=== PATIENT | female | born 1990 ===

== ENCOUNTER 2020-01-29 16:45 | Inpatient (IN) | payer BC ==
[2020-01-29 17:30] VITALS: BMI 25.7
[2020-01-29] MEDS ORDERED: BUTORPHANOL TARTRATE 1 MG/ML VIAL IVPB PRN (18:17)
[2020-01-29] MEDS ORDERED: DINOPROSTONE 10 MG VAGINAL SUPPOSITORY VG ONE (18:17)
[2020-01-29] MEDS ORDERED: PROMETHAZINE HCL 25 MG/1 ML VIAL IVPB PRN (18:17)
[2020-01-29] MEDS ORDERED: ZOLPIDEM TARTRATE 5 MG TABLET PO PRN (18:19)
--- NOTE | 2020-01-29 18:27 | HP ---
Past Medical History - Primary Care Physician PCP:: Ielana NR - [address] [place] - Admission Chief Complaint: Induction of labor History Source: Patient, Medical Record Limitations to Obtaining History: No Limitations - Past Medical History ...: 1 ...Para: 0 ...EDC by Sono: 02/02/20 Additional OB History: IVF Endocrine: Yes: Hypothyroidism - Past Surgical History Past Surgical History: Yes: Cystectomy Hx Myomectomy: No Hx Transabdominal Cerclage: No - Smoking History Smoking history: Never smoked Have you smoked in the past 12 months: No - Alcohol/Substance Use Hx Alcohol Use: No - Social History History of Recent Travel: No Home Medications - Allergies Allergies/Adverse Reactions: Allergies Allergy/AdvReac Type Severity Reaction Status Date / Time No Known Allergies Allergy Verified 01/29/20 17:08 - Home Medications Home Medications: Ambulatory Orders Levothyroxine [Synthroid -] 12.5 mcg PO DAILY 01/29/20 Review of Systems - Review of Systems Constitutional: reports: No Symptoms Cardiovascular: reports: No Symptoms Respiratory: reports: No Symptoms Gastrointestinal: reports: No Symptoms Genitourinary: reports: No Symptoms Breasts: reports: No Symptoms Reported Musculoskeletal: reports: No Symptoms Integumentary: reports: No Symptoms Neurological: reports: No Symptoms Physical Exam - Maternity Vital Signs: Vital Signs Temperature 99.0 F 01/29/20 18:19 Pulse Rate 79 01/29/20 18:19 Respiratory Rate 20 01/29/20 18:19 Blood Pressure 123/76 01/29/20 18:19 O2 Sat by Pulse Oximetry (%) - Abdominal Exam/OB Fundal Height: 40 Number of Fetuses: Single Presentation: Vertex Contractions: Yes Regularity: Irregular Intensity: Unaware Monitor Mode: External Heart Rate (range): 140 Category: I Accelerations: Uniform Decelerations: None - Vaginal Exam/OB Vaginal Bleeding: No Speculum Exam: No Dilatation (cm): 0 Effacement (%): 0 Amniotic Membrane Status: Intact Presentation: Vertex/Position Station: -1 - Physical Exam Extremities: Yes: WNL Hemorrhage Risk Assessment - Risk Factors Medium Risk Factors: Yes: None High Risk Factors: Yes: None Risk Score: 1 Risk Level: Medium Risk Assessment/Plan 29 yo P0 at 39+ weeks IVF , followed by MFM hypothyroid on synthroid AC <3% hx of suspicious NST EFW 5-15 (01/14) recommended IOL cervidil placed
[2020-01-29] MEDS: ELECTROLYTE-148 SOLN 1,000 ML IV SCH (18:45)
[2020-01-29 19:30] LABS: BASO % 0.6 % (0-2.0); EOS % 0.7 % (0-4.5); HEMATOCRIT 34.1 % (32.4-45.2); HEMOGLOBIN 11.5 GM/dL (10.7-15.3); LYMPH % 17.3 % (8-40); MCH 33.5 pg (25.7-33.7); MCHC 33.8 g/dl (32.0-36.0); MEAN CELL VOLUME 99.1 fl (80-96); MEAN PLT VOLUME 9.1 fl (7.5-11.1); MONO % 9.2 % (3.8-10.2); NEUT % 72.2 % (42.8-82.8); PLATELET COUNT 194 K/MM3 (134-434); RBC 3.44 M/mm3 (3.60-5.2); RDW 12.9 % (11.6-15.6); WHITE BLOOD COUNT 8.2 K/mm3 (4.0-10.0)
[2020-01-29 19:40] LABS: INR 0.86 (0.83-1.09); PROTHROMBIN TIME (PATIENT) 10.1 SEC (9.7-13.0)
[2020-01-29 19:43] LABS: ACTIVATED PTT 25.3 SECONDS (25.2-36.5)
[2020-01-29 19:50] LABS: BLOOD UREA NITROGEN 13.1 mg/dL (7-18); CALCIUM 9.5 mg/dL (8.5-10.1); CREATININE 0.7 mg/dL (0.55-1.3); POTASSIUM 4.1 mmol/L (3.5-5.1)
[2020-01-29] MEDS ORDERED: ZOLPIDEM TARTRATE 5 MG TABLET ONE (21:50)
[2020-01-30] MEDS: ELECTROLYTE-148 SOLN 1,000 ML IV SCH ×4 (08:30→22:09)
[2020-01-30] MEDS ORDERED: PCA PUMP NR ONE (08:39)
[2020-01-30] MEDS ORDERED: FENTANYL/BUPIVACAINE/NS/PF - PCEA - 50 ML DISP.SYRIN EP ONE ×3 (08:39→17:07)
[2020-01-30] MEDS ORDERED: BUPIVACAINE HCL/PF 0.25% (2.5MG/ML) 10 ML VIAL ONE ×2 (08:43→17:47)
[2020-01-30] MEDS ORDERED: NALOXONE HCL 0.4 MG/ML VIAL IVPUSH PRN (09:06)
[2020-01-30] MEDS ORDERED: FENTANYL/BUPIVACAINE/NS/PF - PCEA - 50 ML DISP.SYRIN EP SCH (09:15)
[2020-01-30] MEDS ORDERED: ePHEDrine SULFATE 50 MG/1 ML AMPULE ONE (09:15)
--- NOTE | 2020-01-30 09:19 | PN ---
Progress Note (short form) - Note Progress Note: IOL 39w s/p cervidil VSS VE /-2 Cat 1 tracing Contractions q 2-3 min Cervidil removed Will monitor contractions and consider Pitocin if spaced out Continue IOL
[2020-01-30] MEDS ORDERED: OXYTOCIN 30 UNITS in 0.9% NS 30 UNIT/500 ML INFUS.BAG IVPB ONE (10:14)
--- NOTE | 2020-01-30 12:56 | PN ---
Progress Note (short form) - Note Progress Note: s/p epidural Denies complaints VE /-2, vertex, intact Cat 1 tracing baseline 120 Contractions q 3-4 min For Pitocin
[2020-01-30] MEDS ORDERED: OXYTOCIN 30 UNITS in 0.9% NS 30 UNIT/500 ML INFUS.BAG IVPB SCH (13:15)
--- NOTE | 2020-01-30 15:58 | PN ---
Progress Note (short form) - Note Progress Note: IOL On Pitocin Epidural Cat 1 tracing Contractions q 2 min VE 4/50/-2, AROM clear fluid Continue with Pitocin
[2020-01-30] MEDS ORDERED: OXYTOCIN 20 UNITS in 0.9% NS 20 UNIT/1,000 ML INFUS.BAG IV ONE (19:11)
--- NOTE | 2020-01-30 19:20 | PN ---
Progress Note (short form) - Note Progress Note: Now second stage of labor Complains of increased pressure VE fully dilated at 0 station Cat 1 tracing Contractions q 2-4 min Anticipate vaginal delivery
[2020-01-30] MEDS ORDERED: LIDO 2%/EPI 1:200000 PRESRVFRE (20 ML SDVIAL) ONE (21:08)
[2020-01-30] MEDS ORDERED: MISOPROSTOL 200 MCG TABLET PV ONE (21:20)
[2020-01-30] MEDS ORDERED: OXYTOCIN 20 UNITS in 0.9% NS 20 UNIT/1,000 ML INFUS.BAG IV SCH (21:20)
[2020-01-30] MEDS ORDERED: BENZOCAINE 20% 57 GM BOTTLE TP PRN (21:45)
[2020-01-30] MEDS ORDERED: METHYLERGONOVINE MALEATE 0.2 MG/1 ML AMP IM PRN (21:45)
[2020-01-30] MEDS ORDERED: ACETAMINOPHEN 325 MG TABLET (FP) PO PRN (21:45)
[2020-01-30] MEDS ORDERED: IBUPROFEN 600 MG TABLET (FP) PO PRN (21:45)
[2020-01-30] MEDS ORDERED: BISACODYL 10 MG SUPP.RECT RC PRN (21:45)
[2020-01-30] MEDS ORDERED: BENZOCAINE 28 GM HEMORRHOIDAL OINTMENT TP PRN (21:45)
[2020-01-30] MEDS ORDERED: WITCH HAZEL 50% (TUCKS) 40 PAD/JAR PAD TP PRN (21:45)
--- NOTE | 2020-01-30 21:45 | PN ---
Delivery - Delivery Vaginal Delivery: Other (Retained placenta - manual removal of placenta performed under epidural anesthesia) Type of Anesthesia: Epidural Episiotomy/Laceration: 2nd degree EBL (cc): 650 Delivery, Single - [place] Feeding Plan Initial Plan: Exclusive throughout hospitalization
[2020-01-30] MEDS ORDERED: ceFAZolin 2 GRAM PREMIX BAG IVPB ONE (22:00)
[2020-01-30] MEDS ORDERED: MEPERIDINE HCL 50 MG/ML VIAL ONE (22:23)
[2020-01-30] MEDS ORDERED: MEPERIDINE HCL 50 MG/ML VIAL IVPUSH ONE (22:24)
[2020-01-31] MEDS ORDERED: CEFAZOLIN 2 GM/D5W 2 GM/50 ML ML IVPB ONE (00:04)
[2020-01-31] MEDS ORDERED: OXYTOCIN 20 UNITS in 0.9% NS 20 UNIT/1,000 ML INFUS.BAG IV ONE (00:04)
[2020-01-31 09:12] LABS: BASO % 0.2 % (0-2.0); EOS % 0.1 % (0-4.5); HEMATOCRIT 26.5 % (32.4-45.2); LYMPH % 4.8 % (8-40); MCH 33.6 pg (25.7-33.7); MCHC 33.8 g/dl (32.0-36.0); MEAN CELL VOLUME 99.6 fl (80-96); MONO % 6.6 % (3.8-10.2); NEUT % 88.3 % (42.8-82.8); PLATELET COUNT 156 K/MM3 (134-434); RBC 2.66 M/mm3 (3.60-5.2); RDW 12.8 % (11.6-15.6); WHITE BLOOD COUNT 14.3 K/mm3 (4.0-10.0)
--- NOTE | 2020-01-31 10:04 | PN ---
Post Progress Note Post Day: 1 Type of Delivery: Vital Signs: Vital Signs Temperature 98.6 F 01/31/20 06:34 Pulse Rate 88 01/31/20 06:34 Respiratory Rate 18 01/31/20 06:34 Blood Pressure 113/70 01/31/20 06:34 O2 Sat by Pulse Oximetry (%) 100 01/30/20 23:30 Breast Exam: Yes: Soft Uterus: Yes: Fundus Firm Abdomen/GI: Yes: Abdomen soft, Tolerating PO Lochia: Yes: Rubra Lochia, amount: Small Extremities: Yes: Calves non-tender Activity: Ambulating - Labs Labs: CBC WBC 14.3 K/mm3 (4.0-10.0) H 01/31/20 08:01 RBC 2.66 M/mm3 (3.60-5.2) L 01/31/20 08:01 Hgb 9.0 GM/dL (10.7-15.3) L 01/31/20 08:01 Hct 26.5 % (32.4-45.2) L D 01/31/20 08:01 MCV 99.6 fl (80-96) H 01/31/20 08:01 MCH 33.6 pg (25.7-33.7) 01/31/20 08:01 MCHC 33.8 g/dl (32.0-36.0) 01/31/20 08:01 RDW 12.8 % (11.6-15.6) 01/31/20 08:01 Plt Count 156 K/MM3 (134-434) 01/31/20 08:01 MPV 9.0 fl (7.5-11.1) 01/31/20 08:01 Absolute Neuts (auto) 12.6 K/mm3 (1.5-8.0) H 01/31/20 08:01 Neutrophils % 88.3 % (42.8-82.8) H D 01/31/20 08:01 Lymphocytes % 4.8 % (8-40) L D 01/31/20 08:01 Monocytes % 6.6 % (3.8-10.2) 01/31/20 08:01 Eosinophils % 0.1 % (0-4.5) D 01/31/20 08:01 Basophils % 0.2 % (0-2.0) 01/31/20 08:01 Nucleated RBC % 0 % (0-0) 01/31/20 08:01 Assessment/Plan PPD #1, s/p manual removal of placenta Hb/Hct 04/11.5 Monitor vitals Ambulation encouraged Regular diet Pain management Discharge home in AM
[2020-01-31] MEDS ORDERED: SENNOSIDES/DOCUSATE COMBO (SENNA PLUS) TABLET (UD) PO PRN (22:00)
--- NOTE | 2020-02-01 10:05 | DS ---
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 Vital Signs: Vital Signs Temperature 98.8 F 01/31/20 22:00 Pulse Rate 97 H 01/31/20 22:00 Respiratory Rate 18 01/31/20 22:00 Blood Pressure 102/56 L 01/31/20 22:00 O2 Sat by Pulse Oximetry (%) 100 01/31/20 22:00 Constitutional: Yes: Well Nourished, No Distress, Calm Eyes: Yes: WNL, Conjunctiva Clear, EOM Intact HENT: Yes: WNL, Atraumatic, Normocephalic Neck: Yes: WNL, Supple, Trachea Midline Cardiovascular: Yes: WNL, Regular Rate and Rhythm Respiratory: Yes: WNL, Regular, CTA Bilaterally Gastrointestinal: Yes: WNL ...Rectal Exam: Yes: WNL Renal/: Yes: WNL Pelvis: Yes: WNL Internal Exam Deferred: Yes Breast(s): Yes: WNL Musculoskeletal: Yes: WNL Extremities: Yes: WNL Integumentary: Yes: WNL Neurological: Yes: WNL, Alert, Oriented ...Motor Strength: WNL Psychiatric: Yes: WNL, Alert, Oriented Labs: CBC, BMP 01/31/20 08:01 01/29/20 18:45 Delivery - Delivery Vaginal Delivery: Other (Retained placenta - manual removal of placenta performed under epidural anesthesia) Type of Anesthesia: Epidural Episiotomy/Laceration: 2nd degree EBL (cc): 650 Delivery, Single - Stages of Labor Date 1st Stage Initiatied: 01/30/20 Time 1st Stage Initiated: 09:00 Date 2nd Stage Initiated: 01/30/20 Time 2nd Stage Initiated: 19:20 Date of Delivery: 01/30/20 Time of Delivery: 20:05 Time Placenta Delivered: 21:18 - 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
[2020-02-01 10:27] VITALS: BP 100/63; PULSE 75; TEMP 98.1
== END 2020-02-01 12:25 | disposition home or self-care (01) | DRG 807 ==
LOC: JLDR 16:45 → J3W 01-31 00:45
PROVIDERS: ADMIT Obstetrics & Gynecology; ATTEND Obstetrics & Gynecology
PROC: 3E0P7VZ Introduction of Hormone into Female Reproductive, Via Natural or Artificial Opening (ICD-10-PCS; principal; 2020-01-30)
PROC: 10D17Z9 Manual Extraction of Products of Conception, Retained, Via Natural or Artificial Opening (ICD-10-PCS; 2020-01-30)
PROC: 10E0XZZ Delivery of Products of Conception, External Approach (ICD-10-PCS; 2020-01-30)
PROC: 10907ZC Drainage of Amniotic Fluid, Therapeutic from Products of Conception, Via Natural or Artificial Opening (ICD-10-PCS; 2020-01-30)
DX: O70.1 Second degree perineal laceration during delivery (principal); Z37.0 Single live birth; O69.81X0 Labor and delivery complicated by cord around neck, without compression, not applicable or unspecified; O73.0 Retained placenta without hemorrhage; O99.284 Endocrine, nutritional and metabolic diseases complicating childbirth; E03.9 Hypothyroidism, unspecified; Z3A.39 39 weeks gestation of pregnancy
CPT/HCPCS: 36415; 59409; 80048; 85025; 85610; 85730; 86850; 86900; 86901; J2175; U0003